=== PATIENT | female | born 1945 | race Asian ===

== ENCOUNTER 2021-06-18 00:01 | Emergency (ER) | payer OTHER ==
[~2021-06-18] VITALS: Ht 162.6 cm; Wt 44.5 kg
[2021-06-18 00:01] VITALS: BP 179/98; TEMP 99.8
[2021-06-18 00:39] LABS: POTASSIUM 3.5 mmol/L (3.6-5.2)
[2021-06-18 00:44] LABS: PLATELET COUNT 218 K/uL (152-353)
[2021-06-18] MEDS ORDERED: ATEN50TA36 PO (09:12)
[2021-06-18] MEDS ORDERED: HYDROXYZINE HYD25 MG PO ×2 (09:21→09:28)
[2021-06-18] MEDS ORDERED: HYDROXYZINE HYD50 MG PO (09:22)
[2021-06-18] MEDS ORDERED: LEVE500T5 PO (09:24)
[2021-06-18] MEDS ORDERED: MELATONIN3 M1 PO (09:26)
[2021-06-18] MEDS ORDERED: MIRALAX17 GM PO (09:27)
== END 2021-06-18 01:06 | disposition still patient (30) ==
LOC: EDBD 00:01 → ED 00:01
PROVIDERS: Hospitalist
DX: F03.91 Unspecified dementia, unspecified severity, with behavioral disturbance (principal); F25.8 Other schizoaffective disorders; Z11.52 Encounter for screening for COVID-19; Z04.6 Encounter for general psychiatric examination, requested by authority
CPT/HCPCS: 36415; 80053; 85027; 87635; 93005; 99283; U0003